=== PATIENT | female | born 1965 | race Caucasian/White ===

== ENCOUNTER 2023-10-24 08:05 | Emergency (ER) | payer OTHER, SELFPAY ==
--- NOTE | 2023-10-24 08:18 | ED.FEMALEGU ---
HPI - Female Genitourinary General Chief complaint: Urogenital-Female Stated complaint: Uti Symptoms Time Seen by Provider: 10/24/23 08:29 Source: patient, RN notes reviewed and old records reviewed Mode of arrival: ambulatory Limitations: no limitations History of Present Illness HPI Narrative: 58 year old female who presents to [facility] care with complaints of low back pain and lower suprapubic discomfort since yesterday. Patient reports that she has had similar symptoms last tie she had a UTI and her urine only showed a little blood but culture came back positive and was treated with Cipro which resolved her symptoms. Patient reports recent travel Saturday with return on Saturday per airplane from [place]. Patient reports that she drove to and from [place] yesterday and on her way home she started experiencing pain. Patient reports that the discomfort woke her up at 1230 and she drank some water and took some Naprosyn. Patient reports that she vomited at 3am with no further nausea or vomiting, did have normal bowel movement this morning. Patient reports no vaginal bleeding or discharge, denies any concern for STD exposure. MD elicited complaint: UTI Pertinent past history: other (previous UTI with similar symptoms) Onset (ago): day(s) (day 2 of symptoms) Location of symptoms: suprapubic and low back Severity: moderate Severity scale (1-10): 5 Consistency: constant Vaginal discharge: none Vaginal bleeding: none Treatment prior to arrival: NSAIDs Sexual activity: No Possible : postmenopausal Related Data Home Medications Medication Instructions Recorded Confirmed rabeprazole 20 mg tablet,delayed 20 mg PO DAILY 10/24/23 10/24/23 release Allergies Allergy/AdvReac Type Severity Reaction Status Date / Time dye, MRI Allergy Flushing Uncoded 10/24/23 08:29 Review of Systems Review of Systems: CONSTITUTIONAL: Denies fever, chills, or sweats. CARDIOVASCULAR: Denies chest pain, palpitations, or edema. RESPIRATORY: Denies cough or dyspnea. GASTROINTESTINAL: Reports suprapubic abdominal pain,no nausea, vomiting X1, denies diarrhea. GENITOURINARY: Reports no dysuria, frequency, urgency. Denies flank pain or hematuria. report low back and suprapubic pain similar symptoms with past UTI SKIN: Denies rash or itching. MUSCULOSKELETAL: Reports lower back pain or myalgia. Denies CVA tenderness NEUROLOGIC: Denies headache All systems reviewed & are unremarkable except as noted in HPI and below PMFSH Past Medical History Medical History (Updated 10/24/23 @ 09:06 by Gladis Tam NP) Gudino's esophagus GERD (gastroesophageal reflux disease) Surgical History Surgical History (Updated 10/24/23 @ 09:06 by Gladis Tam NP) History of dilatation and curettage Social History Social History (Updated 10/24/23 @ 19:02 by Gladis Tam NP) Smoking status: Never smoker Alcohol intake: unknown Alcohol use details: social Substance use type: does not use Gender identity (if verbalized by the patient): Female Comments At time of signature, agree with nursing past medical, surgical, social and family history. There is no relevant family history pertinent to the presenting complaint Exam Narrative: GENERAL: Well-appearing, well-nourished, and in no acute distress. HEAD: Normocephalic, atraumatic. NECK: Supple.no lymphadenopathy CHEST: Clear to auscultation. No respiratory distress. SILAS 99% on room air HEART: Regular rate and rhythm. No murmur heard. Normal peripheral pulses. ABDOMEN: Soft, tender suprapubic area, no McBurney point tenderness, nondistended, normal active bowel sounds. No CVA tenderness, positive for bilateral lower back pain EXTREMITIES: Normal range of motion. No edema. SKIN: Warm, dry, no rash. NEURO: No focal deficits. Alert and oriented x3. Course Course Emergency Course: Patient is aware of diagnosis, understands and agrees to treatment plan.? Anticipatory
[2023-10-24 08:36] VITALS: BP 156/101; PULSE 69; RESP 16; TEMP 36.6; O2SAT 99
== END 2023-10-24 08:53 | disposition home or self-care (01) ==
PROVIDERS: Emergency Provider Registered Nurse
DX: M54.50 Low back pain, unspecified (principal); R10.30 Lower abdominal pain, unspecified; K22.70 Barrett's esophagus without dysplasia; K21.9 Gastro-esophageal reflux disease without esophagitis
CPT/HCPCS: 81003; 87086; 99213; G0463

== ENCOUNTER 2024-07-29 09:13 | Emergency (ER) | payer OTHER, SELFPAY ==
--- NOTE | ~2024-07-29 | XR_ITS ---
[id number] Ordering provider: Moriah Pop NP History: . cough x 3 wks, mid/ant Rt rib pain . Comparison: No FINDINGS: BONES: No acute right rib fracture or fracture of the visualized osseous structures. LUNGS: No effusions or infiltrates. No pneumothorax. SOFT TISSUES: Normal. IMPRESSION: No right rib fracture . Reviewed, dictated and finalized at location A. ANTILE AGENT IMPRESSION: No right rib fracture .
--- NOTE | 2024-07-29 09:45 | ED_ITS ---
HPI - URI/Sore Throat General Chief Complaint: Upper Respiratory Infection Stated Complaint: COLD SYMPTOMS/COUGH/RIB PAIN Time Seen by Provider: 07/29/24 09:48 Source: patient and RN notes reviewed Mode of arrival: ambulatory Limitations: no limitations History of Present Illness HPI Narrative: 59-year-old female presents with concern for over 2 week history of cough. Reports has gotten worse over the past 4 days she is now having right rib pain and coughing fits. She reports nasal drainage. She reports she has taken cough medicine without relief. She is having to support her chest when coughing to help with the pain. She denies fever, aches, chills, sweats MD elicited complaint: cough Related Data Home Medications ?Medication ?Instructions ?Recorded ?Confirmed ?Last Taken ?Type rabeprazole 20 mg tablet,delayed 20 mg PO DAILY 10/24/23 07/29/24 Unknown History release sertraline 100 mg tablet mg 07/29/24 Unknown History Allergies Allergy/AdvReac Type Severity Reaction Status Date / Time dye, MRI Allergy Flushing Uncoded 07/29/24 09:30 Review of Systems Review of Systems: CONSTITUTIONAL: Denies malaise, chills, sweats, or fever. EYES: Denies visual changes, redness, or discharge. ENT: Reports rhinorrhea. Denies congestion, sinus pain, otalgia and sore throat. CARDIOVASCULAR: Denies chest pain, palpitations, or edema. RESPIRATORY: Reports cough, exertional dyspnea, right rib pain with coughing GASTROINTESTINAL: Denies abdominal pain, nausea, vomiting, diarrhea SKIN: Denies rash or itching. MUSCULOSKELETAL: Denies myalgia. NEUROLOGIC: Denies headache. All systems reviewed & are unremarkable except as noted in HPI and below PMFSH Past Medical History Medical History (Updated 07/29/24 @ 10:21 by Moriah Pop NP) Gudino's esophagus GERD (gastroesophageal reflux disease) Surgical History Surgical History (Updated 10/24/23 @ 09:06 by Gladis Tam NP) History of dilatation and curettage Social History Social History (Updated 10/24/23 @ 19:02 by Gladis Tam NP) Smoking status: Never smoker Alcohol intake: unknown Alcohol use details: social Substance use type: does not use Gender identity (if verbalized by the patient): Female Comments At time of signature, agree with nursing past medical, surgical, social and family history. There is no relevant family history pertinent to the presenting complaint Exam Narrative: GENERAL: Well-appearing, well-nourished, and in no acute distress. HEAD: Normocephalic EYES: PERRLA, conjunctivae clear ENT: Nares clear. Mucous membranes moist. TM pearly schneider with dull light reflex bilaterally; no tragal tenderness. Oropharynx not erythematous without lesions. Tonsils not enlarged and without exudate, no drooling, no hoarseness, no trismus, uvula midline. NECK: Supple. No lymphadenopathy CHEST: Clear to auscultation, breath sounds equal. No wheezing, rhonchi, rales, or stridor. No respiratory distress, speaks in full sentences. HEART: Regular rate and rhythm. No murmur heard. SKIN: Warm, dry, no rash. NEURO: Alert and oriented x3. PSYCH: Normal mood and affect Course Course Emergency Course: Patient is aware of diagnosis, understands and agrees to treatment plan. Anticipatory guidance given. Patient agrees to follow-up as directed and is aware of reasons to seek care at the emergency department. Portions of this record may have been created with voice recognition software Level of Care: Express Care Visit Vital Signs Vital signs: Vital Signs Oxygen Delivery Room Air 07/29/24 09:25 Oxygen Delivery Room Air 07/29/24 09:25 Reviewed. MDM - URI/Sore Throat MDM Narrative Medical decision making narrative: Differential diagnosis considered: Orta virus, strep pharyngitis, allergic rhinitis, upper respiratory tract infection, sinusitis, rhinosinusitis, nasopharyngitis. viral pharyngitis, otitis media, otitis externa, pneumonia, bronchitis, viral cough syndrome, viral syndrome, and influenza. Exam findings show no acute concerns or changes; patient is non-toxic appearing and is in no distress. Patient is appropriate for outpatient treatment and follow-up. Lab Data Attestation: I reviewed the patient's lab results. Critical Care Time Critical Care Time Critical Care Time: No Discharge Plan Discharge Clinical Impression: Lower respiratory tract infection Patient Disposition: Home, Self-Care Condition: Stable Instructions: Acute Cough (ED) Additional Instructions: Your xray is normal and does not show pneumonia or broken ribs Recommend antihistamine such as Benadryl at night time and Zyrtec or Tawana during the day Cough syrup may cause drowsiness; avoid driving or take it at night time. Also, recommend symptomatic treatment includes: rest, fluids, and increase humidity of the air at home. Recommend Acetaminophen as directed on the bottle to reduce fever, pain, headache. Avoid smoking/second-hand smoke. Please schedule a follow-up visit with your personal physician for further evaluation and treatment within 3-5days. Including recheck and discussion of your blood pressure. If your symptoms persist, change or worsen significantly before you can contact your personal physician then please, without delay, go to the emergency department for further evaluation. Patient Language: Indonesian Prescriptions: New azithromycin [Zithromax Z-Garrett] 250 mg tablet See Rx Instructions .ROUTE .COMPLEX Qty: 6 0RF Rx Instructions: take 500 mg today (day 1), then 250 mg for 4 days (days 2-5) prednisone 20 mg tablet 40 mg PO DAILY 5 Days Qty: 10 0RF No Action rabeprazole 20 mg tablet,delayed release (DR/EC) 20 mg PO DAILY sertraline 100 mg tablet Follow-up/Referrals: Dean,Kathy [Other] Time of Disposition: 10:23
[2024-07-29 09:59] VITALS: BP 151/98; PULSE 63; RESP 16; TEMP 36.5; O2SAT 100
== END 2024-07-29 10:25 | disposition home or self-care (01) ==
PROVIDERS: Emergency Provider Nurse Practitioner
DX: J22 Unspecified acute lower respiratory infection (principal)
CPT/HCPCS: 71101; 99213; G0463